=== PATIENT | male | born 1995 | race Two or more races ===

== ENCOUNTER 2024-09-21 14:42 | Emergency (ER) | payer MEDICAID, OTHER ==
[~2024-09-21] VITALS: Ht 175.3 cm; Wt 104.5 kg
[2024-09-21 15:16] VITALS: PULSE 108; RESP 13; O2SAT 96
--- NOTE | 2024-09-21 15:51 | ED.PDOC ---
HPI (NEURO) HPI Comments 29 year old male presents to the ED via EMS with a chief complaint of seizure onset today. Per EMS, patient was donating plasma, experienced seizure like activity and 911 was called. Patient states he does not recall events, recalls donating plasma, began feeling RT arm numb and when he wakes up, sees paramedics in front of him. Bystanders state patient experienced a seizure, he has no PMHx of seizures. Patient noticed he has a bite on his tongue, with no further complaints. PMHx asthma. Denies nausea, vomiting, diarrhea, chest pain, shortness of breath. No other symptoms or modifying factors present at this time. Chief Complaint: Seizure Time Seen by MD: 15:35 Reviewed Notes: Medications, Allergies Information Source: Patient, Emergency Med Personnel Mode of Arrival: EMS Severity: Moderate Headache Severity: None Timing: Hours Duration: Since onset Prehospital treatment: None Seizure Quality: Single Episodes Seizure Location: Generalized Onset: At rest Circumstances: Spontaneous Symptoms: Syncope Before: Normal History of: None Modifying factors: Nothing Past Medical History PAST MEDICAL HISTORY: Asthma Surgical History: Denies all surgeries Family History Family History: Reviewed,noncontributory to illness, No family hx of Cancer, No family hx of DM, No family hx of Heart gilles, No family hx of HTN, No family hx ofKidney gilles, No family hx of Liver gilles, No family hx of Lung gilles, No family hx of Stroke Social History Smoker: Non-Smoker Alcohol: Denies ETOH Use Drugs: Denies Drug Use Lives In: Home Constitutional: denies: chills, diaphoresis, fatigue, fever, malaise, sweats, weakness, others EENTM: denies: blurred vision, double vision, ear bleeding, ear discharge, ear drainage, ear pain, ear ringing, eye pain, eye redness, hearing loss, mouth pain, mouth swelling, nasal discharge, nose bleeding, nose congestion, nose pain, photophobia, tearing, throat pain, throat swelling, voice changes, others Respiratory: denies: cough, hemoptysis, orthopnea, SOB at rest, shortness of breath, SOB with excertion, stridor, wheezing, others Cardiovascular: denies: chest pain, dizzy spells, diaphoresis, Dyspnea on exertion, edema, irregular heart beat, left arm pain, lightheadedness, palpit ations, PND, syncope, others Gastrointestinal: denies: abdomen distended, abdominal pain, blood streaked b owels, constipated, diarrhea, dysphagia, difficulty swallowing, hematemesis, melena, nausea, poor appetite, poor fluid intake, rectal bleeding, rectal pain, vomiting, others Genitourinary: denies: burning, dysuria, flank pain, frequency, hematuria, incontinence, penile discharge, penile sore, pain, testicle pain, testicle swelling, urgency, others Neurological: reports: seizure; denies: dizziness, fainting, headache, left sided numbness, left sided weakness, numbness, paresthesia, pre-existing deficit, right sided numbness, right sided weakness, speech problems, tingling, tremors, weakness, others Musculoskeletal: denies: back pain, gout, joint pain, joint swelling, muscle pain, muscle stiffness, neck pain, others Integumetry: denies: bruises, change in color, change in hair/nails, dryness, laceration, lesions, lumps, rash, wounds, others Allergic/Immunocompromised: denies: Difficulty Healing, Frequent Infections, Hives, Itching, others Hematologic/Lymphatic: denies: anemia, blood clots, easy bleeding, easy bruising, swollen glands, others Endocrine: denies: excessive hunger, excessive sweating, excessive thirst, excessive urination, flushing, intolerance to cold, intolerance to heat, unexplained weight gain, unexplained weight loss, others Psychiatric: denies: anxiety, bipolar disorder, depression, hopeless, panic di sorder, schizophrenia, sleepless, suicidal, others All Other Systems: Reviewed and Negative Physical Exam General Appearance: No Apparent Distress, Normal HEENT: Normal ENT Inspection, Pharynx Normal, TMs Normal Neck: Full Range of Motion, Non-Tender, Normal, Normal Inspection Respiratory: Chest Non-Tender, Lungs Clear, No Accessory Muscle Use, No Respiratory Distress, Normal Breath Sounds Cardiovascular: No Edema, No JVD, No Murmur, No Gallop, Normal Peripheral Pulses, Regular Rate/Rhythm Breast Exam: Deferred Gastrointestinal: No Organomegaly, Non Tender, No Pulsatile Mass, Normal Bowel Sounds, Soft Genitalia: Deferred Pelvic: Deferred Rectal: Deferred Extremities: No calf tenderness, Normal capillary refill, Normal inspection, Normal range of motion, Non-tender, No pedal edema Musculoskeletal : Apperance: Normal Neurologic: Alert, lounge car attendant II-XII nml as Tested, No Motor Deficits, Normal Affect, Normal Mood, No Sensory Deficits Cerebellar Function: Normal Reflexes: Normal Skin: Dry, Normal Color, Warm Lymphatic: No Adenopathy Was a procedure done? Was a procedure done?: No Differential Diagnosis (SZ) Seizure: Psychogenic Seizure, Alcohol Withdrawl, Closed Head Injury, CVA/TIA, Hypocalcemia, Hyponatremia, Hypoxemia, Idiopathic, Syncope CVA: CVA, Encephalopathy, Hypoxemia General Weakness: CVA, Dehydration, Dysrhythmia, TIA Headache: N/A X-Ray, Labs, Meds, VS Vital Signs Date Time Temp Pulse Resp B/P (MAP) Pulse Ox O2 Delivery O2 Flow Rate FiO2 09/21/24 15:16 98.6 108 13 145/88 (107) 96 98.6 09/21/24 15:16 108 13 96 Room Air* 0 21 09/21/24 14:50 99.0 123 22 151/101 (118) 97 99.0 Lab Test 09/21/24 16:39 Range/Units White Blood Count 23.8 H 4.4-10.8 10^3/uL Red Blood Count 5.81 4.5-5.90 10^6/uL Hemoglobin 15.0 13.5-17.5 g/dL Hematocrit 45.7 41.0-53.0 % Mean Corpuscular Volume 78.6 L 80.0-100.0 fL Mean Corpuscular Hemoglobin 25.7 L 28.0-32.0 pg Mean Corpuscular Hemoglobin Concent 32.7 32.0-36.0 g/dL Red Cell Distribution Width 15.3 H 11.8-14.3 % Platelet Count 125 L 140-450 10^3/uL Mean Platelet Volume 9.8 6.9-10.8 fL Neutrophils (%) (Auto) 87.2 H 37.0-80.0 % Lymphocytes (%) (Auto) 5.5 L 10.0-50.0 % Monocytes (%) (Auto) 6.5 0.0-12.0 % Eosinophils (%) (Auto) 0.6 0.0-7.0 % Basophils (%) (Auto) 0.2 0.0-2.0 % Neutrophils # (Auto) 20.8 H 1.6-8.6 10 ^3/uL Lymphocytes # (Auto) 1.3 0.4-5.4 10 ^3/uL Monocytes # (Auto) 1.6 H 0-1.3 10 ^3/uL Eosinophils # (Auto) 0.1 0-0.8 10 ^3/uL Basophils # (Auto) 0 0-0.2 10 ^3/uL Nucleated Red Blood Cells 0.0 % Sodium Level 139 136-145 mmol/L Potassium Level 3.5 3.5-5.1 mmol/L Chloride Level 107 98-107 mmol/L Carbon Dioxide Level 23 20-31 mmol/L Anion Gap 9 5-15 Blood Urea Nitrogen 7 L 9-23 mg/dL Creatinine 1.20 0.700-1.30 mg/dL Glomerular Filtration Rate Calc 83 >90 mL/min BUN/Creatinine Ratio 5.8 L 10.0-20.0 Serum Glucose 97 74-106 mg/dL Calcium Level 9.7 8.7-10.4 mg/dL Troponin I High Sensitivity < 3 L </=54 ng/L Current Medications Medications (Trade) Dose Ordered Sig/Vidya Route Start Time Stop Time Status Last Admin Ibuprofen (Motrin Tablet) 400 mg ONCE ONCE PO 09/21/24 17:45 09/21/24 17:46 DC 09/21/24 17:45 [place] [id number] Ph: [phone] DIAGNOSTIC IMAGING Diagnostic Imaging Report : [id number] Signed PATIENT: MARITO SUMNER ACCT: [id number] UNIT: [id number] : 1995 LOC: ER ROOM / BED: / AGE / SEX: 29 / M ADM STATUS: REG ER SERVICE [id number] ORDERING PHYSICIAN: RAMONA GUAJARDO MD PROCEDURE(s): HWOCT - HEAD WITHOUT CONTRAST REASON: seizure ORDER NUMBER(s): [id number], ACCESSION NUMBER(s): [id number] CT BRAIN WITHOUT CONTRAST HISTORY: seizure TECHNIQUE: Axial scans were obtained from the skull base through the vertex without contrast. Sagittal and coronal reformats were generated. One or more of the following radiation dose reduction techniques were used for this examination: automated exposure control, adjustment of the mA and/or kV according to patient size, use of iterative reconstruction technique. CTDI = 63.82 mGy and DLP = 1129.89 mGy cm COMPARISON: None FINDINGS: There is no significant cortical atrophy. [place]-white matter differentiation is normal there are no midline shifts or focal mass effect or signs of hemorrhage, mass or fluid collection or hemorrhage. Midline structures are unremarkable. Pituitary is normal aqueduct of Sylvius and 4th ventricle are unremarkable hippocampal structures are symmetric. Visualized paranasal sinuses demonstrate patchy ethmoid sinus disease. Mastoid air cells middle ears and external and internal auditory canals are unremarkable. Calvarium is intact and unremarkable. IMPRESSION: 1. Mild ethmoid sinus disease. Otherwise unremarkable study. I would recommend if more imaging is required a PET-CT ATED BY: PARAG OLIVEIRA MD DICTATED DATE/TIME: 09/21/241644 SIGNED BY: PARAG OLIVEIRA MD SIGNED DATE/TIME: 09/21/241644 CC: [place] [address] Ph: [phone] DIAGNOSTIC IMAGING Diagnostic Imaging Report : [id number] Signed PATIENT: MARITO SUMNER ACCT: [id number] UNIT: [id number] : 1995 LOC: ER ROOM / BED: / AGE / SEX: 29 / M ADM STATUS: REG ER SERVICE 17 ORDERING PHYSICIAN: RAMONA GUAJARDO MD PROCEDURE(s): CXRP - CHEST PORTABLE REASON: seizure ORDER NUMBER(s): [id number], ACCESSION NUMBER(s): [id number] CHEST RADIOGRAPH Indication: seizure Technique: Single frontal view of the chest was obtained Comparison: None FINDINGS: Lines and Tubes: None Lungs: No focal consolidation. Pleura: No effusion. No pneumothorax. Cardiomediastinal contours: Unremarkable Bones: No acute osseous abnormality. IMPRESSION: 1. No acute cardiopulmonary disease. ATED BY: SYLVIA VENEGAS Jr., DO DICTATED DATE/TIME: 09/21/241654 SIGNED BY: SYLVIA VENEGAS Jr., SIGNED DATE/TIME: 09/21/241654 CC: Time of 1ST Reevaluation: 16:05 Reevaluation 1ST: Unchanged Patient Education/Counseling: Diagnosis, Treatment, Prognosis Family Education/Counseling: No Family Present Departure 1 Departure Time of Disposition: 18:04 (Patient presented with syncope versus seizure today and should be admitted. Data: 1. I ordered and reviewed the result of at least 3 labs including a CBC, BMP, and troponin. 2. I independently interpreted the following tests: EKG which shows a normal sinus rhythm and a chest x-ray which shows benign chest and a CT head which shows benign brain.Risk:This patient has a high risk of morbidity due to further diagnostic testing or treatment and may suffer from an acute cardiac, neurologic, or infectious disorder. Rationale: Patient should be admitted to the hospital for further management.) Impression: Primary Impression: Syncope and collapse Additional Impression: Seizure-like activity Disposition: 09 ADMITTED INPATIENT Admit to: Med Surg Condition: Serious Critical Care Note Critical Care Time?: No Stability Stability form required: No I personally scribed for RAMONA GUAJARDO MD ([email or web address]) on 09/21/24 at 15:51. Electronically submitted by Uma Ching ([email or web address]). I personally scribed for RAMONA GUAJARDO MD ([email or web address]) on 09/21/24 at 17:19. Electronically submitted by Uma Ching ([email or web address]). RAMONA GUAJARDO MD Sep 21, 2024 15:51
--- NOTE | 2024-09-21 16:48 | DVH ---
CT BRAIN WITHOUT CONTRAST HISTORY: seizure TECHNIQUE: Axial scans were obtained from the skull base through the vertex without contrast. Sagitta l and coronal reformats were generated. One or more of the following radiation dose reduction techniq ues were used for this examination: automated exposure control, adjustment of the mA and/or kV accord ing to patient size, use of iterative reconstruction technique. CTDI = 63.82 mGy and DLP = 1129.89 mGy cm COMPARISON: None FINDINGS: There is no significant cortical atrophy. [place]-white matter differentiation is normal ther e are no midline shifts or focal mass effect or signs of hemorrhage, mass or fluid collection or hemo rrhage. Midline structures are unremarkable. Pituitary is normal aqueduct of Sylvius and 4th ventricle are un remarkable hippocampal structures are symmetric. Visualized paranasal sinuses demonstrate patchy ethmoid sinus disease. Mastoid air cells middle ears and external and internal auditory canals are unremarkable. Calvarium is intact and unremarkable. IMPRESSION: 1. Mild ethmoid sinus disease. Otherwise unremarkable study. I would recommend if more imaging is re quired a PET-CT
--- NOTE | 2024-09-21 16:57 | DVH ---
CHEST RADIOGRAPH Indication: seizure Technique: Single frontal view of the chest was obtained Comparison: None FINDINGS: Lines and Tubes: None Lungs: No focal consolidation. Pleura: No effusion. No pneumothorax. Cardiomediastinal contours: Unremarkable Bones: No acute osseous abnormality. IMPRESSION: 1. No acute cardiopulmonary disease.
[2024-09-21 17:11] LABS: Basophils # (auto) 0 10 ^3/uL (0-0.2); Eosinophils # (auto) 0.1 10 ^3/uL (0-0.8); Eosinophils % (auto) 0.6 % (0.0-7.0); Platelet Count (auto) 125 10^3/uL (140-450)
[2024-09-21 17:12] LABS: Basophils % (auto) 0.2 % (0.0-2.0); Hematocrit 45.7 % (41.0-53.0); Lymphocytes # (auto) 1.3 10 ^3/uL (0.4-5.4); Lymphocytes % (auto) 5.5 % (10.0-50.0); Mean Corpuscular Hemoglobin 25.7 pg (28.0-32.0); Mean Corpuscular Hgb Conc. 32.7 g/dL (32.0-36.0); Mean Corpuscular Volume 78.6 fL (80.0-100.0); Monocytes # (auto) 1.6 10 ^3/uL (0-1.3); Monocytes % (auto) 6.5 % (0.0-12.0); Neutrophils # (auto) 20.8 10 ^3/uL (1.6-8.6); Neutrophils % (auto) 87.2 % (37.0-80.0); Red Blood Cells 5.81 10^6/uL (4.5-5.90); Red Cell Distribution Width 15.3 % (11.8-14.3); White Blood Cell 23.8 10^3/uL (4.4-10.8)
[2024-09-21 17:15] LABS: Chloride 107 mmol/L (98-107); Potassium 3.5 mmol/L (3.5-5.1); Sodium 139 mmol/L (136-145)
[2024-09-21 17:16] LABS: Anion Gap 9 (5-15); Carbon Dioxide 23 mmol/L (20-31)
[2024-09-21 17:17] LABS: Calcium 9.7 mg/dL (8.7-10.4)
[2024-09-21 17:21] LABS: BUN/Creatinine Ratio 5.8 (10.0-20.0); Glucose 97 mg/dL (74-106)
[2024-09-21 17:26] LABS: Blood Urea Nitrogen 7 mg/dL (9-23)
[2024-09-21] MEDS ORDERED: CEFEPIME 2GM/50ML NS 50 ML IV ONE (17:45)
[2024-09-21] MEDS: IBUPROFEN 400 MG TAB PO ONE (17:45)
[2024-09-21] MEDS: SODIUM CHLORIDE 0.9% 3,000 ML IV ONE (18:26)
[2024-09-21] MEDS: CEFEPIME 2GM/50ML NS 50 ML IV ONE (18:26)
[2024-09-21] MEDS ORDERED: VANCOMYCIN 1GM/200ML PM 200 ML IV ONE (18:45)
[2024-09-21 19:18] LABS: Urine Bacteria None Seen /hpf (None Seen)
[2024-09-21 19:39] VITALS: BP 151/76; PULSE 106; RESP 11; TEMP 98.6; O2SAT 98
[2024-09-21 19:40] LABS: Urine Amorphous Crystal FEW /hpf (None Seen); Urine Blood Negative /uL (Negative); Urine Clarity Turbid (Clear); Urine Color Light-Yellow (Yellow); Urine Protein, UAD Negative (Negative); Urine Specific Gravity 1.014 (1.001-1.035); Urine Squamous Epithelial Cell None Seen /hpf (<5); Urine Urobilinogen Normal (Negative); Urine WBC 1 /HPF (0-3); Urine pH 5.5 (5.0-9.0)
== END 2024-09-21 19:36 | disposition left against medical advice (07) ==
LOC: ER 14:42 → EDBD 14:42 → ER 19:36
DX: R55 Syncope and collapse (principal); R56.9 Unspecified convulsions; J45.909 Unspecified asthma, uncomplicated
CPT/HCPCS: 36415; 70450; 71045; 80048; 81001; 83605; 84484; 85025; 87040; 96365; 99285; J0692